=== PATIENT | male | born 1990 | race Caucasian/White ===

== ENCOUNTER → 2018-06-11 | Emergency (ER) | payer OTHER ==
[~2018-06-11] VITALS: Ht 180.3 cm; Wt 88.0 kg
[~2018-06-11] MED LIST: DiphenhydrAMINE 50mg/ml Inj IVP ONE
--- NOTE | 2018-06-11 01:06 | NUR ---
ED Nurse Note: Patient presents with c/o excessive emesis x 10. Reports eating nd then not feelin so well. Patient reports no pertinent health history.
[2018-06-11 01:07] VITALS: BP 123/86
--- NOTE | 2018-06-11 01:17 | Emergency Room Report ---
History of Present Illness General Chief Complaint: Abdominal Pain Source: Patient Present Illness HPI Is a 28-year-old male with probable allergy to shellfish. He presents with chief complaint of nausea vomiting and weakness. He works at a [employer] restaurant. After work, he ate food there. He did not know there was some cross contamination. On the way home he felt nauseous. He had episode vomiting and was better. He got home and felt flushed with abdominal cramps and has several more episodes vomiting. He felt tachycardic and sweaty. He came here and had a large amount of vomiting in the waiting room neck she fell better. No fever chills. no diarrhea. No rash. Allergies: Coded Allergies: SHELLFISH DERIVED (Verified Allergy, Unknown, 06/11/18) Patient History Past Medical History: see triage record, old chart reviewed Past Surgical History: none Pertinent Family History: none Social History: Denies: smoking Immunizations: other Reviewed Nursing Documentation: PMH: Agreed; PSxH: Agreed Nursing Documentation-PMH Past Medical History: No Stated History Review of Systems Eye: Denies: eye pain, blurred vision ENT: Denies: ear pain, nose congestion, throat swelling Respiratory: Reports: shortness of breath; Denies: cough Cardiovascular: Denies: chest pain, palpitations Gastrointestinal: Reports: abdominal pain, nausea, vomiting; Denies: diarrhea Musculoskeletal: Denies: back pain, joint pain Skin: Denies: rash Neurological: Denies: headache, numbness Endocrine: Denies: increased thirst, increased urine Hematologic/Lymphatic: Denies: easy bruising All Other Systems: negative except mentioned in HPI Physical Exam Vital Signs Date Time Temp Pulse Resp B/P (MAP) Pulse Ox O2 Delivery O2 Flow Rate FiO2 06/11/18 00:56 97.5 100 15 123/86 97 Room Air vitals normal Sp02 EP Interpretation: reviewed, normal General Appearance: well appearing, alert, other - Pale and ill-appearing Head: normocephalic, atraumatic Eyes: bilateral eye PERRL, bilateral eye EOMI ENT: hearing grossly normal, normal pharynx Neck: full range of motion, supple, no meningismus Respiratory: chest non-tender, lungs clear, normal breath sounds Cardiovascular #1: regular rate, rhythm, no murmur Gastrointestinal: normal bowel sounds, non tender, no mass, no organomegaly, no bruit, non-distended Musculoskeletal: back normal, gait/station normal, normal range of motion Neurologic: alert, oriented x3 Psychiatric: mood/affect normal Skin: pallor Medical Decision Making Diagnostic Impression: Primary Impression: Allergic reaction to food Qualified Codes: T78.1XXA - Other adverse food reactions, not elsewhere classified, initial encounter ER Course Patient with nausea vomiting with probable reaction to seafood. He has similar symptom in the past. Better now. No evidence of anaphylaxis. His color is back to normal. He felt better. We'll discharge home. Last Vital Signs Date Time Temp Pulse Resp B/P (MAP) Pulse Ox O2 Delivery O2 Flow Rate FiO2 06/11/18 01:07 97.5 78 15 123/86 97 Room Air Status: improved Disposition: HOME, SELF-CARE Condition: Stable Scripts No Active Prescriptions or Reported Meds Referrals: [facility],REFERRING (PCP) Additional Instructions: Recommend outpatient testing for food allergy. Follow-up with your doctor in 7 days. May take Benadryl as needed for allergic reaction. Return if worse. Johnny Thompson MD Jun 11, 2018 01:17
[2018-06-11 01:53] VITALS: BP 102/76
[2018-06-11 02:20] VITALS: BP 102/76
--- NOTE | 2018-06-11 02:20 | NUR ---
ED Nurse Note: Patient cleared for discharge by ERMD, patient ambulator with steady gait, no s/s of acute distress. ID band removed, IV removed, patient accompanied by sister upon departure. patient took all belongings.
== END | disposition home or self-care (01) ==
LOC: EMR 01:00
DX: T78.1XXA Other adverse food reactions, not elsewhere classified, initial encounter (principal); R11.2 Nausea with vomiting, unspecified; Z91.013 Allergy to seafood; F17.200 Nicotine dependence, unspecified, uncomplicated
CPT/HCPCS: 96361; 96374; 99284; J1200